=== PATIENT | male | born 1945 | race Caucasian/White ===

== ENCOUNTER 2016-12-20 15:27 | Inpatient (IN) | payer MEDICARE ==
[~2016-12-20] VITALS: Ht 182.9 cm; Wt 133.0 kg
[2016-12-20] VITALS (7 sets, daily range): BP systolic 116–163; BP diastolic 62–92; PULSE 61–75; RESP 10–20; O2SAT 96–99
[2016-12-20 15:47] LABS: BASOPHILS % (AUTO) 0.1 % (0-3); EOSINOPHILS % (AUTO) 1.5 % (0-5); Mean Corpuscular Hemoglobin 32.2 pg (27.0-35.0); Mean Corpuscular Volume 94.1 fL (81-100); NEUTROPHILS % (AUTO) 81.9 % (40-74); Platelet Count 190 bil/L (150-400)
--- NOTE | 2016-12-20 15:51 | DRSVH ---
PROCEDURE: X-RAY CHEST ONE VIEW, PORTABLE ([id number]) INDICATIONS: Chest pain. TECHNIQUE: One view of the chest was acquired. COMPARISON: Outside Facility, RG, CT THORAX/ABDOMEN/PELVIS WITH CONTRAST, 05/02/2008, 14:31. FINDINGS: Surgical changes and devices: Surgical changes in the area of thyroid gland. Lungs and pleura: No pleural effusions or pneumothorax. Lungs are clear. Mediastinum: Mediastinal contours appear normal. Heart size is normal. Bones and chest wall: No suspicious bony lesions. Overlying soft tissues appear unremarkable. IMPRESSION: No acute cardiopulmonary disease. Dictated by: Tabitha Roche M.D. on 12/20/2016 at 15:48 Approved by: Tabitha Roche M.D. on 12/20/2016 at 15:49
--- NOTE | 2016-12-20 16:00 | ED.REPORT ---
HPI-Chest Pain 40 and Over Date of Service Dec 20, 2016 ED Provider: Shady Love MD Patient is a 71 year old male with a history of gallbladder cancer status post cholecystectomy, hypertension and diabetes who presents to the ED via EMS complaining of chest pain onset this morning. Associated symptoms include shortness of breath, pain that radiates into his right arm and the right side of his neck. He denies diaphoresis or increased nausea. The patient states that the episode of chest pain resolved after 15 minutes. He reports that around 1400 the chest pain returned, was more severe and describes it as sharp. This episode last approximately 30-45 minutes. En route, the patient was given ASA. The patient has been pain free for about an hour. Patient is currently receiving chemotherapy treatment. He states that he had a normal stress echo 7 months ago. Nursing Notes Stated Complaint: CHEST PAIN Chief Complaint: Chest Pain Nursing Notes Reviewed: Yes Allergies: Coded Allergies: Penicillins (Verified Allergy, Severe, rash, 12/20/16) amoxicillin (Verified Allergy, Severe, rash, 12/20/16) Uncoded Allergies: bee stings (Allergy, Severe, anaphylatic , 12/20/16) hay fever (Allergy, Mild, 12/20/16) General Time Seen by MD: 15:59 Chief Complaint Chest pain Hx Obtained From: Patient Arrived By: Ambulance Sudden in Onset?: Yes Onset Occurred: 1 - 4 hours ago Symptom Duration: Intermittent Location: : Substernal Quality: Painful Severity: Current: Moderate Past Medical History Past Medical History gallbladder cancer thyroid cancer Reports: Diabetes mellitus Past Surgical History Reports: Cholecystectomy Smoking History Unknown if Ever Smoker Ambulatory Status Independent Review of Systems Respiratory: Reports: Shortness of breath Cardiovascular: Reports: Chest pain GI: Denies: Nausea Musculoskeletal: Reports: Extremity pain, Neck pain Skin: Denies Diaphoresis Complete sys rev & neg: except as marked. Physical Exam Initial Vital Signs Vital Signs (First) Date Time Temp Pulse Resp B/P Pulse Ox O2 Delivery O2 Flow Rate FiO2 12/20/16 15:30 36.4 68 20 125/64 96 Room Air Initial VS: Reviewed General/Constitutional: Awake, Alert Respiratory / Chest: Atraumatic, Breath sounds NL, Breath sounds = bilat, No respiratory distress Cardiovascular: Heart rate NL, Regular rhythm, Heart sounds NL Abdomen: Atraumatic, Soft, Non-tender Lower Extremity / Pelvis / MS: Atraumatic, Full range of motion Skin: Atraumatic, Color NL, No rash, Warm, Dry Neurologic: Oriented X3, Speech NL Psychiatric: Affect NL, Mood NL Head / Eyes: Atraumatic, Normocephalic Interpretation & Diagnostics Lab Results Interpretation Result Diagram: 12/20/16 1537 12/20/16 1537 Test 12/20/16 15:37 12/20/16 16:43 White Blood Count 6.8th/mm3 (3.8-10.1) Red Blood Count 4.26mil/mm3 (4.40-5.80) Hemoglobin 13.7g/dL (13.8-17.2) Hematocrit 40.1% (41.0-50.0) Mean Corpuscular Volume 94.1fL (81-100) Mean Corpuscular Hemoglobin 32.2pg (27.0-35.0) Mean Corpuscular Hemoglobin Concent 34.2% (32.0-37.0) Red Cell Distribution Width 12.5% (12.3-15.4) Platelet Count 190bil/L (150-400) Neutrophils (%) (Auto) 81.9% (40-74) Lymphocytes (%) (Auto) 15.4% (14-46) Monocytes (%) (Auto) 1.0% (4-12) Eosinophils (%) (Auto) 1.5% (0-5) Basophils (%) (Auto) 0.1% (0-3) D-Dimer 0.69mg/L FEU (<0.50) Sodium Level 136mEq/L (134-144) Potassium Level 4.0mEq/L (3.5-5.2) Chloride Level 100mEq/L (97-108) Carbon Dioxide Level 21mmol/L (18-29) Blood Urea Nitrogen 18mg/dL (8-27) Creatinine 0.82mg/dL (0.76-1.27) Estimat Glomerular Filtration Rate 98mL/min (>59) Glucose Level 184mg/dL (60-99) Calcium Level 8.7mg/dL (8.5-10.1) Magnesium Level 2.1mg/dL (1.6-2.6) Total Bilirubin 1.8mg/dL (0.0-1.2) Aspartate Amino Transf (AST/SGOT) 24U/L (0-50) Alanine Aminotransferase (ALT/SGPT) 28U/L (0-44) Alkaline Phosphatase 49U/L (25-160) Troponin T < 0.010ug/L (0.0-0.011) Total Protein 6.7g/dL (6.4-8.4) Albumin 3.4g/dL (3.4-5.0) Hold Urine Received (Received) ECG Interpretation ECG Interpretation: RBBB and LAFB Time: 15:37 Interpreted by: ED physician Normal ECG Interpretation: Normal rate (68), Normal sinus rhythm X-Ray Chest Interpretation Chest Xray Interpretation: IMPRESSION: No acute cardiopulmonary disease. Dictated by: Tabitha Roche M.D. on 12/20/2016 at 15:48 Approved by: Tabitha Roche M.D. on 12/20/2016 at 15:49 Interpretation / Wet Read by: Interpret - Radiologist Re-Eval/Medical Decision Med Decision/Clinical Course D-dimer is slightly elevated therefore chest CT will be performed. Time of Eval: 16:03 Re-Evaluation/Progress Note: Patient is currently pain free. Time of Eval: 16:50 Re-Evaluation/Progress Note: Discussed the conversation that was had with his rn advanced and primary care physician. Plan to admit. Patient understands and agrees to plan. All questions were addressed. Time of Eval: 17:23 Re-Evaluation/Progress Note: Discussed plan for CT to rule out PE. Consultation #1: Consulted With: Cardiology Call Returned at: 16:32 Note: Consult with the partner of Dr. Jairo Skelton, from [facility], who reports that the patient's stress echo was normal 7 months ago. Consultation #2: Consulted With: Property Maintenance Supervisor Call Returned at: 16:44 Manager Bridge: Agrees with eval, Agrees with plan Note: Consult with Dr. Kinga eRbolledo (oncology), who recommends excluding pulmonary embolism, and that he should not take his chemotherapy medications until discussed with rn advanced again. Consultation #3: Referral / Consult Name: MosquedaMarah DO Consulted With: Hospitalist Call Returned at: 17:16 Manager Bridge: Agrees with eval, Agrees with plan, Accepts admit Counseled Regarding: Diagnosis, Lab results, Need for admission Discharge & Departure Primary Impression: Chest pain Chest pain type: unspecified Qualified Code: R07.9 - Chest pain, unspecified Disposition: ADMITTED TO HOSPITAL Discharge Condition All VS Reviewed: Yes Condition: Stable Scribe Attestation Portions of this note were transcribed by Yasmin Saunders. I, Dr. Love personally performed the history, physical exam and medical decision-making; I reviewed and confirmed the accuracy of the information in the transcribed note. Signed by: Emanuel Mcallister, 12/20/16 Shady Love MD Dec 20, 2016 16:00 Mandi Saunders Dec 20, 2016 16:08
[2016-12-20 16:17] LABS: TROPONIN T < 0.010 ug/L (0.0-0.011)
[2016-12-20 16:26] LABS: Magnesium 2.1 mg/dL (1.6-2.6)
[2016-12-20] MEDS ORDERED: 0.9% Sodium Chloride 1,000 ML IV SCH (17:42)
[2016-12-20] MEDS ORDERED: Alum-Mag Hydrox-Simeth 30 mL Suspension PO PRN (17:45)
[2016-12-20] MEDS ORDERED: Atropine 1 mg/10 mL (Code) Syringe IVPUSH PRN ×2 (17:45→21:20)
[2016-12-20] MEDS ORDERED: Ondansetron 2 mg/mL 2 mL Inj IVPUSH PRN ×2 (17:45→21:20)
[2016-12-20] MEDS ORDERED: Polyethylene Glycol (PEG) 17 Gm Powder PO PRN (17:45)
[2016-12-20] MEDS ORDERED: Senna-Docusate 8.6-50 mg Tablet PO PRN (17:45)
[2016-12-20] MEDS ORDERED: Nitroglycerin 50 mg/250 mL D5W 50,000 MCG in IV Premix 1 EACH IV SCH (18:20)
[2016-12-20] MEDS ORDERED: Nitroglycerin 50 mg/250 mL D5W Premix IV ONE (18:25)
--- NOTE | 2016-12-20 18:26 | DRSVH ---
PROCEDURE: CT ANGIO CHEST PULMONARY EMBOLISM ([id number]) INDICATIONS: chest pain TECHNIQUE: After the administration of intravenous contrast, 2 mm thick sections acquired from the pulmonary api yamile to the posterior costophrenic angles. 3-dimensional maximum intensity projection (MIP) coronal a nd sagittal reformats were then acquired through the thorax. For radiation dose reduction, the follo wing was used: automated exposure control, adjustment of mA and/or kV according to patient size. COMPARISON: None. FINDINGS: Image quality: Excellent. Pulmonary arteries: Pulmonary arteries are normal in size, and demonstrate no intraluminal filling d efects to suggest central pulmonary embolism. Lungs and pleura: Lungs are clear. No pleural effusions or pneumothorax. Central and peripheral ai rways are patent. Mediastinum: Heart size is normal, without pericardial effusion. No mediastinal adenopathy. 10 mm l eft hilar lymph node is present. Thoracic aorta is normal in caliber and enhancement. Esophagus is normal in caliber, without hiatal hernia. Bones and chest wall: No suspicious bony lesions. Ribs and thoracic spine appear intact throughout. Thyroid gland is not visualized. No axillary or supraclavicular adenopathy. Abdomen: Visualized upper abdominal solid organs appear normal in the early arterial phase of enhanc ement. IMPRESSION: 1. Lungs are clear. No visualized pulmonary embolism. 2. 10 mm left hilar lymph node. This is overall nonspecific and no priors are available for compariso n. Dictated by: Aye Mcguire M.D. on 12/20/2016 at 18:20 Approved by: Aye Mcguire M.D. on 12/20/2016 at 18:24
[2016-12-20] MEDS ORDERED: Heparin 1,000 Unit/mL 10 mL Inj ONE (19:12)
[2016-12-20] MEDS ORDERED: Nitroglycerin 50,000 mcg/250 mL D5W Premix IV ONE (19:12)
[2016-12-20] MEDS ORDERED: Heparin 1,000 Units/500 mL NS Premix IV ONE (19:12)
[2016-12-20] MEDS ORDERED: Dextrose 5% 250 ML IV ONE (19:13)
[2016-12-20] MEDS ORDERED: NitroPRUSSIDE 25,000 mCg/mL 2 mL Inj IV ONE (19:13)
[2016-12-20] MEDS ORDERED: 0.9% Sodium Chloride 1,000 ML ONE (19:13)
[2016-12-20] MEDS ORDERED: Heparin 10,000 Unit/1,000 mL NS Premix IV ONE (19:13)
[2016-12-20] MEDS ORDERED: Heparin 5,000 Unit/mL Inj IVPUSH PRN (19:30)
[2016-12-20] MEDS ORDERED: Heparin 25K Unit/500mL 0.45 NS 25,000 UNIT in IV Premix 1 EACH IV SCH (19:30)
[2016-12-20 19:36] LABS: TROPONIN T < 0.010 ug/L (0.0-0.011)
[2016-12-20 19:45] LABS: Creatine Kinase 64 U/L (21-232)
[2016-12-20] MEDS ORDERED: fentaNYL-PF 50 mCg/mL 2 mL Inj ONE (19:51)
[2016-12-20] MEDS ORDERED: Atropine 1 mg/10 mL (Code) Syringe ONE (19:56)
[2016-12-20] MEDS ORDERED: FLUO20CA25 PO (21:04)
[2016-12-20] MEDS ORDERED: FINA5TAB9 PO (21:04)
[2016-12-20] MEDS ORDERED: TRAZ-115 PO (21:04)
[2016-12-20] MEDS ORDERED: SIMV20TA4 PO (21:04)
[2016-12-20] MEDS ORDERED: ASPI-973 PO (21:04)
[2016-12-20] MEDS ORDERED: AMLO5TAB2 PO (21:04)
[2016-12-20] MEDS ORDERED: CHOL5000 PO (21:04)
[2016-12-20] MEDS ORDERED: FEXO-15 PO (21:04)
[2016-12-20] MEDS ORDERED: LEVO150T5 PO (21:04)
[2016-12-20] MEDS ORDERED: HYDR-4003 PO (21:04)
[2016-12-20] MEDS ORDERED: OLOP5DRO8 (21:04)
[2016-12-20] MEDS ORDERED: SENN-133 PO (21:04)
[2016-12-20] MEDS ORDERED: BRIM5DRO (21:04)
[2016-12-20] MEDS ORDERED: METF500T7 PO (21:04)
[2016-12-20] MEDS ORDERED: LOPE2CAP PO (21:04)
[2016-12-20] MEDS ORDERED: ZOLP5TAB6 PO (21:04)
[2016-12-20] MEDS ORDERED: POLY17PO23 PO (21:04)
[2016-12-20] MEDS ORDERED: LATA2.5D6 (21:04)
[2016-12-20] MEDS ORDERED: ONDA8TAB10 PO (21:04)
--- NOTE | 2016-12-20 21:15 | CS94 ---
[address] [address] DIAGNOSTIC CARDIAC CATHETERIZATION PATIENT: LILLIANA DYKES : 1945 MR#: [id number] ADMIT: 12/20/2016 JOB ID: [id number] SERVICE DATE: 12/20/2016 PROCEDURE: Selective right and left coronary angiography, left heart catheterization. INDICATIONS: Acute coronary syndrome. PROCEDURAL DETAILS: The reader and the coders are referred to the procedure log for complete details. Briefly, it was done via right femoral approach using a 6-Nauruan system. ANGIOGRAPHIC FINDINGS: 1. Left main: No significant disease. 2. LAD is a moderate caliber transapical vessel. It has mild plaquing of about 10% to 20% in its mid segment. No critical stenosis is noted. 3. Circumflex is a large caliber, codominant vessel. It is free of any significant disease. 4. Right coronary artery is codominant. It is moderate caliber. No significant disease is noted in the right coronary either. 5. Left heart catheterization revealed an LVEDP of 10. There was no gradient upon pullback. LVEF is preserved and is estimated to be greater than 60%. In summary, no significant epicardial coronary artery disease. Continue with risk factor modification. Unknown cardiac etiology for his chest discomfort. Needs to be determined.
[2016-12-20] MEDS ORDERED: HYDROcodone-APAP 5-325 mg Tablet PO PRN ×2 (21:20→22:25)
[2016-12-20] MEDS ORDERED: 0.9% Sodium Chloride 400 ML (4 HRS) IV ONE (21:20)
[2016-12-20] MEDS ORDERED: 0.9% Sodium Chloride 250 ML BOLUS IV PRN (21:20)
[2016-12-20] MEDS ORDERED: Sodium Chloride LOK Flush 10 mL Syringe IVFLUSH PRN (21:20)
--- NOTE | 2016-12-20 21:21 | HP ---
[address] [address] HISTORY AND PHYSICAL PATIENT: LILLIANA DYKES : 1945 MR#: [id number] ADMIT: 12/20/2016 JOB ID: [id number] CHIEF COMPLAINT: Chest discomfort. This patient came to the emergency department with complaints of chest discomfort. He had a CT scan done to rule out a dissection or a PE. I was informed by the ER physician both of these were negative. However, while in the ER, the patient started having severe chest discomfort. He became diaphoretic with it. Along with this, there were subtle ST-T changes with slight ST-segment elevation and T-wave changes in the anterolateral leads. I was contacted and the decision was made to take the patient to the bobcat driver/labor urgently. At the time of interview, the patient had got a nitroglycerin and was pain free. PAST MEDICAL HISTORY: Recently diagnosed gallbladder cancer. The patient is considered to be potentially curable from his gallbladder cancer and his prognosis is deemed to be excellent. Three years ago he was diagnosed with diabetes for which he takes metformin. He also has history of hypertension and dyslipidemia. MEDICATIONS AT HOME: Metformin, aspirin, atenolol and a cholesterol-lowering pill. ALLERGIES: PENICILLIN. PERSONAL HISTORY: He denies any smoking or alcohol abuse. FAMILY HISTORY: Negative for premature coronary artery disease. REVIEW OF SYSTEMS: Comprehensive review of systems was done and is as per HPI. More importantly, no GI, bleeding. He is unsure if he is going to require any upcoming surgeries. EXAMINATION: Obese gentleman. Looks his age, no distress when examined in the bobcat driver/labor. Neck supple. No JVD. Chest: Clear. Heart sounds S1, S2. Somewhat distant but no gallops. Abdomen soft. Extremities: Negative for CCE. Good femoral pulses bilaterally. ZINC MINER BLASTING alert and oriented. The patient has chest discomfort that seemed anginal. This along with his diaphoresis and ST-T changes compelled us to take him to the bobcat driver/labor. The patient gave his consent. Angiographic results are reported elsewhere. Briefly, he has normal coronaries with preserved LV function. The patient will be admitted to the hospitalist service. His somewhat distant heart sounds could be because of his obesity. However, I would recommend getting an echo as well. Further management per medical team. Cardiology will follow. Dr. Cotto resumes service in the morning. Dr. Griffiths is on-call tonight.
[2016-12-20] MEDS: Sodium Chloride LOK Flush 10 mL Syringe IVFLUSH SCH (21:40)
[2016-12-20 21:52] LABS: APPEARANCE,URINE CLEAR (CLEAR,HAZY); COLOR,URINE YELLOW (YELLOW); OCCULT BLOOD,URINE TRACE (NEGATIVE); UROBILINOGEN,URINE NORMAL (NORMAL)
--- NOTE | 2016-12-20 22:26 | PCM.HPMED ---
Subjective Date of Service Dec 20, 2016 Primary Provider: Admitting Physician: Kenan Tamayo MD Primary Care Physician: Jeff Talley MD Attending Physician: Kenan Tamayo MD Admit Status: From the Emergency Department, Full Admit Chief Complaint: Chest pain. . History of Present Illness: Glen Armenta is a 71-year-old male with a past medical history significant for hypertension, hyperlipidemia, obesity, diabetes mellitus type II, non-insulin using, and gallbladder cancer status post cholecystectomy on Xeloda who presented to [facility] emergency department via EMS complaining of chest pain. The patient reports that he had an episode of right-sided chest pain that radiated to his right arms the last few days and again at 10:00 this morning. He describes the pain as sharp in quality. The episode this morning lasted 15-30 minutes and spontaneously resolved on its own. He then had an episode again at 1400 that was increased in severity and also radiated to his right jaw. He denies associated shortness of breath, nausea, vomiting, diaphoresis, lightheadedness or dizziness. This episode lasted 30-45 minutes and resolved prior to EMS arrival. En route, the patient was given 325 mg of aspirin. The patient has been pain free for about an hour. The patient is currently receiving chemotherapy treatment. He states that he had a normal stress echo approximately 7 months ago. Interval history: The patient had an elevated d-dimer and a cancer patient undergoing chemotherapy, therefore, a CTA was ordered to rule out PE. While the patient was in this CT scanner he began experiencing chest pain and reported it to one of the nurses. An EKG was done which showed STEMI and he was taken to the slab lifting supervisor by Dr. Hayden. Left heart catheterization revealed no obstructive coronary artery disease. Please see report. A cardiac heparin gtt was initiated and then discontinued. Vital signs in the ER: Temperature 36.4. Pulse 68. Respiratory rate 20. Blood pressure 125/64. Pulse ox 96% on room air. He received nitroglycerin gtt and cardiac gtt. PCP is Dr. Jeff Talley. . Review of Systems: A comprehensive review of systems was conducted with the patient and found to be negative except as above in the History of Present Illness. . Allergies Coded Allergies: Penicillins (Verified Allergy, Severe, rash, 12/20/16) amoxicillin (Verified Allergy, Severe, rash, 12/20/16) influenza virus vaccine, specific (Verified Allergy, Severe, 12/20/16) Uncoded Allergies: bee stings (Allergy, Severe, anaphylatic , 12/20/16) hay fever (Allergy, Mild, 12/20/16) Home Medications Amlodipine 5 mg twice a day. Aspirin 81 mg daily. Combigan eyedrops Fexofenadine 180 mg twice a day. Finasteride 5 mg daily. Fluoxetine 20 mg daily at bedtime. Hydrocodone 5-325 mg 1 tab 4 times a day as needed for pain. Latanoprost 2.5 mL drops Levothyroxine 175 g daily. Loperamide 2 mg as needed for diarrhea. Metformin 500 mg twice a day. Olopatadine HCL 0.1% drops. Ondansetron 8 mg 4 times a day as needed for nausea. MiraLAX 1 packet daily as needed for constipation. Senna 8.6 mg daily as needed for constipation. Simvastatin 20 mg daily. Trazodone 50 mg daily at bedtime. Zolpidem 5 mg daily at bedtime as needed for insomnia. Vitamin D3 5000 international units daily. Xeloda . PMH 1. Gallbladder cancer status post cholecystectomy. 2. Thyroid cancer status post thyroidectomy. 3. Diabetes mellitus type II, non-insulin using. 4. 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 5. Hypertension. 6. Hyperlipidemia. 7. Seasonal allergies. 8. Depression. 9. Insomnia. 10. BPH. 11. Vitamin D deficiency. . Surgical History 1. Cholecystectomy. 2. Thyroidectomy. 3. Bilateral knee arthroscopic. 4. Bilateral cataract extraction. 5. Neck fusion unknown level. 6. Detached retina status post repair. . Family History Mother who is alive with unknown history and is 96 years old. Father of prostate cancer and colon cancer at 87 years old. He has three half-brothers who all have prostate cancer. One half-sister who is alive and healthy. . Social History Hx Alcohol Use: Yes (rarely 1-2x/year) Hx Substance Use: No Smoking Status: Former Smoker (1 PPD 20 years), Unknown if Ever Smoker Additional Information The patient has been for 45 years. He has 2 children who are healthy. He is retired manager administrative. . Exam Vital Signs Vital Sign - Last Date Time Temp Pulse Resp B/P Pulse Ox O2 Delivery O2 Flow Rate FiO2 12/20/16 20:43 36.6 61 10 116/72 97 Room Air Exam General: Older male lying flat in bed and in no acute distress, well-developed, well-nourished, appropriately interactive. HEENT: Normocephalic, atraumatic. External ears without defect. Pupils equal, round, and reactive to light. Anicteric sclerae, moist conjunctivae, and no lid lag. Oropharynx free of erythema and cobble stoning with moist mucosa. Neck: Supple with full range of motion. No jugular venous distension. No bruits. No lymphadenopathy or thyromegaly. Cardiovascular: Regular rate and rhythm without murmurs, rubs, or gallops appreciated Pulmonary: Clear to auscultation bilaterally without crackles, wheezes, or rhonchi. Normal respiratory effort with no use of accessory muscles. Abdomen: Soft, nontender, nondistended, bowel sounds present. No hepatosplenomegaly or masses appreciated. Extremities: No clubbing, cyanosis, or edema. Groin with closure device in place clear and dry. Skin: Normal temperature, turgor, and texture; no rash, ulcers, or subcutaneous nodules appreciated. Neurological: Cranial nerves grossly intact. Normal muscle strength, tone, and bulk. Reflexes, coordination, and sensory function within normal limits. No known gait impairment. Psychiatric: Normal mood and affect. Alert and oriented to person, place, and time. . Lab and Diagnostics Labs Item Value Date Time Calcium Level 8.7 mg/dL 12/20/16 153 Magnesium Level 2.1 mg/dL 12/20/16 1537 Total Bilirubin 1.8 mg/dL H 12/20/16 1537 Aspartate Amino Transf (AST/SGOT) 24 U/L 12/20/16 1537 Alanine Aminotransferase (ALT/SGPT) 28 U/L 12/20/16 1537 Alkaline Phosphatase 49 U/L 12/20/16 1537 Total Creatine Kinase 64 U/L 12/20/16 185 Creatine Kinase MB 1.8 ng/mL 12/20/16 185 Troponin T < 0.010 ug/L 12/20/16 185 Troponin T < 0.010 ug/L 12/20/16 1537 Total Protein 6.7 g/dL 12/20/16 1537 Albumin 3.4 g/dL 12/20/16 153 Thyroid Stimulating Hormone (TSH) 1.050 uIU/mL 12/20/16 1537 Result Diagram: 12/20/16 1537 12/20/16 1537 X-Rays, CTs and MRIs X-RAY CHEST ONE VIEW, PORTABLE IMPRESSION: No acute cardiopulmonary disease. Dictated by: Tabitha Roche M.D. on 12/20/2016 at 15:48 CT ANGIO CHEST PULMONARY EMBOLISM IMPRESSION: 1. Lungs are clear. No visualized pulmonary embolism. 2. 10 mm left hilar lymph node. This is overall nonspecific and no priors are available for comparison. Dictated by: Aye Mcguire M.D. on 12/20/2016 at 18:20 . 12-lead ECG EKG:Sinus rhythm, heart rate 68, left axis, borderline prolonged QTC otherwise normal intervals, poor R-wave progression, RBBB, left and anterior fascicular block, no pathological Q waves or acute ischemic changes such as ST elevation or depression. . Assessment & Plan Glen Armenta is a 71-year-old male with a past medical history significant for hypertension, hyperlipidemia, obesity, diabetes mellitus type II, non-insulin using, and gallbladder cancer status post cholecystectomy on Xeloda who presented to [facility] emergency department via EMS complaining of chest pain. 1. Acute chest pain, present on admission. Resolved. - The patient presented with several episodes of right-sided substernal chest pain at rest gradually worsening in severity with each episode with radiation to right arm and neck. Without associated nausea, vomiting, diaphoresis, shortness of breath, lightheadedness or dizziness. - Differential diagnosis includes: Xeloda -induced coronary vasospasm versus less likely musculoskeletal pain versus esophageal spasm. PE ruled out. - Cardiac risk factors include: Hypertension, hyperlipidemia, diabetes mellitus type II, obesity, and former smoker. - Initial EKG negative for acute ischemic changes. Repeat EKG demonstrated STEMI. - Initial troponin < 0.010 2. - Started cardiac heparin gtt for what was thought to be probable STEMI. Discontinued after catheterization. - Chest x-ray did not demonstrate any acute cardiopulmonary process, as above. - Continue aspirin 81 mg daily and simvastatin 20 mg daily at bedtime. - Fasting lipid panel ordered for tomorrow morning. - Ordered an echocardiogram, pending. - Consulted cardiology, Dr. Hadyen, who performed a cardiac catheterization which did not demonstrate any obstructive coronary artery disease. Please see cath report. We appreciate cardiology's time and recommendations. Chronic problems: 2. Gallbladder cancer status post cholecystectomy, not present on admission. Stable. - Discontinued Xeloda at his oncologist, Dr. Liv Rebolledo, direction due to a rare side effect of this medication causing coronary vasospasm. - His oncologist recommended discussing this with Dr. Reeves the patients tobacco packing machine operator. 3. Diabetes mellitus type II, non-insulin using, present on admission. Stable. - The patient reports his last hemoglobin A1c was 7.0%. Repeat hemoglobin A1c pending. - Order carbohydrate/heart healthy diet. - Ordered low-dose correctional scale insulin. - Held metformin. May restart at time of discharge. 4. Surgically induced hypothyroidism, present on admission. Stable. - Continue levothyroxine 175 g daily. 5. Hypertension, present on admission. Stable. - Continue amlodipine 5 mg twice a day. 6. Hyperlipidemia, present on admission. Stable. - Continue simvastatin 20 mg daily. 7. Seasonal allergies, present on admission. Stable. - Continue fexofenadine 180 mg twice a day. 8. Depression, present on admission. Stable. - Continue fluoxetine 20 mg daily at bedtime. 9. BPH, present on admission. Stable. - Continue finasteride 5 mg daily. 10. Insomnia, present on admission. Stable. - Continue trazodone 50 mg daily at bedtime and zolpidem 5 mg daily at bedtime as needed for insomnia. 11. Vitamin D deficiency, present on admission. Stable. - Continue vitamin D3 5000 international units daily. PRN antiemetics: Zofran and Maalox. PRN bowel regimen: Senna and MiraLAX. PRN analgesics: Tylenol. Patient is admitted under inpatient status with expected length of stay greater than 2 midnights due to severity of presenting symptoms, risk of adverse event, and complexity of treatment plan. . VTE Prophylaxis: Sub-Q Heparin (Unfractionated) Resuscitation Status: CPR: Attempt Resuscitation Attending Statement The patient was seen and examined together with Dr. Savage on 12/20 and I agree with the history, exam and plan as outlined in the note above. Karen Savage DO Dec 20, 2016 20:51 Kenan Tamayo MD Dec 20, 2016 22:26
--- NOTE | 2016-12-20 22:36 | NUR ---
Admission Pt admitted to CCU room #2020 at 2030 on 12/20. Pt A&O, stable on RA. Pt received a star close to the right groin. Site soft, nontender, no hematoma. Vitals WNL. Blood Glucose Stable. Pt to be off strict bedrest at 2230. Pt compliant with plan of care. Pt in no acute distress.
[2016-12-21] MEDS ORDERED: Heparin 5,000 Unit/mL Inj SUBQ SCH (00:30)
--- NOTE | 2016-12-21 01:29 | NUR ---
Assumed Care Assumed care of patient at 2355. Patient resting comfortably in bed, VSS, right groin site soft, non-tender, no drainage present on dressing. Patient up to commode with standby assist; small firm BM.
[2016-12-21 03:44] LABS: BASOPHILS % (AUTO) 0.3 % (0-3); Mean Corpuscular Volume 94.1 fL (81-100); Platelet Count 177 bil/L (150-400)
[2016-12-21 04:01] VITALS: BP 128/94; PULSE 61; RESP 17; O2SAT 96
[2016-12-21 04:23] LABS: Creatine Kinase 53 U/L (21-232); Magnesium 2.5 mg/dL (1.6-2.6)
[2016-12-21 05:40] VITALS: PULSE 65
[2016-12-21 07:41] VITALS: BP 133/68; PULSE 59; RESP 17; O2SAT 95
[2016-12-21] MEDS: Sodium Chloride LOK Flush 10 mL Syringe IVFLUSH SCH (08:37)
[2016-12-21 08:42] VITALS: PULSE 68
[2016-12-21 12:28] VITALS: BP 154/83; PULSE 64; RESP 17; O2SAT 96
[2016-12-21] MEDS ORDERED: NITR0.4T SL ×2 (13:42→14:31)
--- NOTE | 2016-12-21 13:46 | DRSVH ---
[facility] [address] [place] [address] Echocardiogram Report Name: LILLIANA DYKES LStudy Juvenal te: 12/21/2016 Height: 28.5 in Hospital Exam Location: [facility] Weight: 293 lb Gender: Other BSA: 1.3 m2 : 1945 Age: 71 yrs BP: 128/94 mmHg Reason For Study: CHEST PAIN Ordering Physician: Performed By: Gualberto Flores Referring Physician: Kenneth GONZALEZ Interpretation Summary There is mild concentric left ventricular hypertrophy. The ejection fraction is estimated to be 60-65%. There are no focal wall motion abnormalities. The right ventricle is borderline dilated. The apical portion of the RV appears hypokinetic. The clinical significance of this finding is uncertain. The IVC is of normal diameter and collapses greater than 50% with a sniff. This suggests a low right atrial pressure of 3 mm Hg. There is no pericardial effusion. No other echocardiographic abnormalities seen. No obvious etiology for the patients chest discomfort. Suggest f/u echo in 6 months to re-evaluate the distal RV. Procedure: A two-dimensional transthoracic echocardiogram with color flow and Doppler was performed. The study quality was technically adequate. There is no prior echocardiogram noted for this patient. The patient was in normal sinus rhythm during the exam. Left Ventricle: The left ventricle is normal in size. There is mild concentric left ventricular hypertrophy. The ejection fraction is estimated to be 60-65%. There are no focal wall motion abnormalities. Right Ventricle: The right ventricle is borderline dilated. The apical portion of the RV appears hypokinetic. The clinical significance of this finding is uncertain. Atria: The left atrium is borderline dilated. The right atrium is borderline dilated. The interatrial septum is intact with no evidence for an atrial septal defect. Mitral Valve: The mitral valve is normal in structure and function. There is no mitral regurgitation noted. Aortic Valve: The aortic valve is trileaflet. The aortic valve opens well. There is no aortic valve stenosis. No aortic regurgitation is present. Tricuspid Valve: The tricuspid valve is normal in structure and function. There is a trace or physiologic amount of tricuspid regurgitation. Pulmonary artery pressures cannot be estimated because of the lack of a measurable TR jet velocity. Pulmonic Valve: The pulmonic valve is normal in structure and function. There is trace pulmonic regurgitation. Great Vessels: The aortic root is normal size. The ascending aorta is at the upper limits of normal in size. The pulmonary artery is normal size. The IVC is of normal diameter and collapses greater than 50% with a sniff. This suggests a low right atrial pressure of 3 mm Hg. Pericardium/ Pleura There is no pericardial effusion. There is no pleural effusion. MMode/2D Measurements & Calculations LVIDd: 4.9 cm LVIDs: 2.8 cm LA A2 area: 23.7 cm FS: 43.4 % LA A4 area: 26.8 cm IVSd: 1.3 cm LA length (vol): 7.0 cm LVPWd: 1.3 cm LA vol: 76.6 ml LA vol index: 60.1 ml/m IVC diam: 2.0 cm RA long axis: 6.3 cm Aortic Jxn: 2.7 cm RA area: 18.7 cm asc Aorta Diam: 3.5 cm RA vol: 47.2 ml RA : 37.1 ml/m2 LV rizvi. diameter/BSA (cm/m^2): 3.8 LV sys. diameter/BSA (cm/m^2): 2.2 RVD1 (basal): 4.0 cm RVD2 (mid): 4.5 cm Doppler Measurements & Calculations MV E max solitario: 73.4 cm/sec MV E/A: 0.62 MV A max solitario: 119.4 cm/sec Med Peak E' Solitario: 4.0 cm/sec E/E' med: 18.4 Lat Peak E' Solitario: 3.2 cm/sec E/E' lat: 22.8 E/e' average: 20.6 Pulm A Revs Solitario: 31.4 cm/sec PA Accel Time: 0.15 sec MV dec time: 0.26 sec MV P1/2t max solitario: 73.4 cm/sec Reading Physician:01:45 PM
--- NOTE | 2016-12-21 13:47 | PCM.DIMED ---
Discharge Instructions Date of Service Dec 21, 2016 Dates of Hospitalization Dec 20, 2016 at 19:16 Discharge Diagnosis Discharge Diagnosis # Acute chest pain, present on admission. Resolved. - Unclear etiology but ruled out for acute pulmonary embolism, myocardial infarction or acute coronary artery disease # History of gallbladder cancer status post cholecystectomy. # Histor of Thyroid cancer status post thyroidectomy. # Diabetes mellitus type II, non-insulin using. 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 # Hypertension. # Hyperlipidemia. Diet Discharge Diet: Low fat, Low Sodium, Heart Healthy Activity Discharge Activity: No restrictions Call your provider Call your provider for: Fever or Chills, Shortness of breath, Bleeding, Chest pain Patient Instructions Patient Instructions Seek immediate medical attention if any new or worsening signs or symptoms occur. Follow-up plan 1. Followup with your primary care provider, oncologist, and chief warden within coming week to further address your medications and treatment. Follow-up Provider: Jeff Talley MD, [place] Dec 21, 2016 13:47
--- NOTE | 2016-12-21 13:55 | PCM.DC.MED ---
Discharge Summary Date of Service Dec 21, 2016 Dates of Hospitalization Date of Hospital Admission Dec 20, 2016 at 19:16 Date of Discharge: Dec 21, 2016 Providers: Admitting Physician: Kenan Tamayo MD Primary Care Physician: Jeff Talley MD Attending Physician: Nabeel Alaniz Diagnosis at Time of Discharge Diagnosis at Time of Discharge # Acute chest pain, present on admission. Resolved. - Unclear etiology but ruled out for acute pulmonary embolism, myocardial infarction or acute coronary artery disease # History of gallbladder cancer status post cholecystectomy. # Histor of Thyroid cancer status post thyroidectomy. # Diabetes mellitus type II, non-insulin using. 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 # Hypertension. # Hyperlipidemia. Consultations 1. Cardiology Procedures XRay, CTs & MRIs X-RAY CHEST ONE VIEW, PORTABLE IMPRESSION: No acute cardiopulmonary disease. Dictated by: Tabitha Roche M.D. on 12/20/2016 at 15:48 CT ANGIO CHEST PULMONARY EMBOLISM IMPRESSION: 1. Lungs are clear. No visualized pulmonary embolism. 2. 10 mm left hilar lymph node. This is overall nonspecific and no priors are available for comparison. Dictated by: Aye Mcguire M.D. on 12/20/2016 at 18:20 . Invasive Procedures SERVICE DATE: 12/20/2016 PROCEDURE: Selective right and left coronary angiography, left heart catheterization. ANGIOGRAPHIC FINDINGS: 1. Left main: No significant disease. 2. LAD is a moderate caliber transapical vessel. It has mild plaquing of about 10% to 20% in its mid segment. No critical stenosis is noted. 3. Circumflex is a large caliber, codominant vessel. It is free of any significant disease. 4. Right coronary artery is codominant. It is moderate caliber. No significant disease is noted in the right coronary either. 5. Left heart catheterization revealed an LVEDP of 10. There was no gradient upon pullback. LVEF is preserved and is estimated to be greater than 60%. In summary, no significant epicardial coronary artery disease. Continue with risk factor modification. Unknown cardiac etiology for his chest discomfort. Needs to be determined. Galdino Hayden MD 12/20/162001 Brief History As noted in H&P by Dr. Tamayo: Glen Armenta is a 71-year-old male with a past medical history significant for hypertension, hyperlipidemia, obesity, diabetes mellitus type II, non-insulin using, and gallbladder cancer status post cholecystectomy on Xeloda who presented to [facility] emergency department via EMS complaining of chest pain. The patient reports that he had an episode of right-sided chest pain that radiated to his right arms the last few days and again at 10:00 this morning. He describes the pain as sharp in quality. The episode this morning lasted 15-30 minutes and spontaneously resolved on its own. He then had an episode again at 1400 that was increased in severity and also radiated to his right jaw. He denies associated shortness of breath, nausea, vomiting, diaphoresis, lightheadedness or dizziness. This episode lasted 30-45 minutes and resolved prior to EMS arrival. En route, the patient was given 325 mg of aspirin. The patient has been pain free for about an hour. The patient is currently receiving chemotherapy treatment. He states that he had a normal stress echo approximately 7 months ago. Interval history: The patient had an elevated d-dimer and a cancer patient undergoing chemotherapy, therefore, a CTA was ordered to rule out PE. While the patient was in this CT scanner he began experiencing chest pain and reported it to one of the nurses. An EKG was done which showed STEMI and he was taken to the laboratory scientist by Dr. Hayden. Left heart catheterization revealed no obstructive coronary artery disease. Please see report. A cardiac heparin gtt was initiated and then discontinued. Vital signs in the ER: Temperature 36.4. Pulse 68. Respiratory rate 20. Blood pressure 125/64. Pulse ox 96% on room air. He received nitroglycerin gtt and cardiac gtt. . Hospital Course 1. Acute chest pain, present on admission. Resolved. - The patient presented with several episodes of right-sided substernal chest pain at rest gradually worsening in severity with each episode with radiation to right arm and neck. - PE ruled out with negative CTA - Acute AK ruled out with negative Trop x 3 - Consulted cardiology, Dr. Hayden, who performed a cardiac catheterization on admission which did not demonstrate any significant obstructive coronary artery disease (as detailed above) - Patient reports having had significant relief for his chest pain after receiving SL NTG on admission and per his request will be discharged home with a prescription of SL NTG prn until he has a chance to followup with his Fire Safety Manager and oncologist later this week. - Echocardiogram was performed but official read is still pending by time of discharge. Per discussion with cardiology business operations manager will d/c patient home and recommend that he followup with the official results as outpatient either with his PCP or hide puller. Chronic problems: 2. Gallbladder cancer status post cholecystectomy, not present on admission. Stable. - Discontinued Xeloda at his oncologist, Dr. Liv Rebolledo, direction due to a rare side effect of this medication causing coronary vasospasm. - His oncologist recommended discussing this with Dr. Reeves the patients hide puller. 3. Diabetes mellitus type II, non-insulin using, present on admission. Stable. - HgA1C 6.5 - Held metformin. May restart at time of discharge. 4. Surgically induced hypothyroidism, present on admission. Stable. - Continued levothyroxine 175 g daily. 5. Hypertension, present on admission. Stable. - Continued amlodipine 5 mg twice a day. 6. Hyperlipidemia, present on admission. Stable. - Continued simvastatin 20 mg daily. 7. Seasonal allergies, present on admission. Stable. - Continued fexofenadine 180 mg twice a day. 8. Depression, present on admission. Stable. - Continued fluoxetine 20 mg daily at bedtime. 9. BPH, present on admission. Stable. - Continued finasteride 5 mg daily. 10. Insomnia, present on admission. Stable. - Continued trazodone 50 mg daily at bedtime and zolpidem 5 mg daily at bedtime as needed for insomnia. 11. Vitamin D deficiency, present on admission. Stable. - Continued vitamin D3 5000 international units daily. By day of discharge he denies any further chest pain, discomfort or other new symptoms. Exam Vital Signs (Last) Date Time Temp Pulse Resp B/P Pulse Ox O2 Delivery O2 Flow Rate FiO2 12/21/16 12:28 36.8 64 17 154/83 96 Room Air 12/21/16 05:45 21 Exam Lungs: CTA bilat CV: RRR Abd: Soft, NT, ND, +BS Test 12/20/16 15:37 12/20/16 16:43 12/20/16 21:31 12/20/16 21:52 D-Dimer 0.69mg/L FEU (<0.50) Hemoglobin A1c 6.5% (4.8-5.6) Total Bilirubin 1.8mg/dL (0.0-1.2) Aspartate Amino Transf (AST/SGOT) 24U/L (0-50) Alanine Aminotransferase (ALT/SGPT) 28U/L (0-44) Alkaline Phosphatase 49U/L (25-160) Total Protein 6.7g/dL (6.4-8.4) Albumin 3.4g/dL (3.4-5.0) Thyroid Stimulating Hormone (TSH) 1.050uIU/mL (0.450-4.500) Hold Urine Received (Received) Urine Color Yellow (YELLOW) Urine Appearance Clear (CLEAR,HAZY) Urine pH 6.0 (5.0-8.0) Urine Specific Lincoln <1.005 (1.003-1.035) Urine Protein Negativemg/dL (NEG,TRACE) Urine Glucose (UA) Negativemg/dL (NEGATIVE) Urine Ketones Negativemg/dL (NEGATIVE) Urine Occult Blood Trace (NEGATIVE) Urine Nitrite Negative (NEGATIVE) Urine Bilirubin Negative (NEGATIVE) Urine Urobilinogen Normalmg/dL (NORMAL) Urine Leukocyte Esterase Negative (NEGATIVE) Urine RBC 0-2/hpf (0-2) Urine WBC 0-5/hpf (0-5) Urine Epithelial Cells Few/hpf (NONE-MOD) Urine Crystals None seen (NONE SEEN) Urine Bacteria Few/hpf (NONE-FEW) Urine Hyaline Casts None/lpf (NONE) Urine Granular Casts None seen (NONE SEEN) Urine Waxy Casts None seen (NONE SEEN) Urine Red Blood Cell Casts None seen (NONE SEEN) Urine White Blood Cell Casts None seen (NONE SEEN) Urine Mucus None seen (None Seen) Urine Trichomonas None seen (NONE SEEN) Urine Yeast None (NONE SEEN) Urinalysis Comment None Urine Culture Reflexed Not indicated HIV (1&2) Antibody Rapid Negative (Negative) Test 12/21/16 03:20 12/21/16 09:23 White Blood Count 6.9th/mm3 (3.8-10.1) Red Blood Count 4.10mil/mm3 (4.40-5.80) Mean Corpuscular Volume 94.1fL (81-100) Mean Corpuscular Hemoglobin 32.0pg (27.0-35.0) Mean Corpuscular Hemoglobin Concent 33.9% (32.0-37.0) Red Cell Distribution Width 12.5% (12.3-15.4) Platelet Count 177bil/L (150-400) Neutrophils (%) (Auto) 74.0% (40-74) Lymphocytes (%) (Auto) 22.6% (14-46) Monocytes (%) (Auto) 1.0% (4-12) Eosinophils (%) (Auto) 2.0% (0-5) Basophils (%) (Auto) 0.3% (0-3) Sodium Level 138mEq/L (134-144) Potassium Level 4.2mEq/L (3.5-5.2) Chloride Level 104mEq/L (97-108) Carbon Dioxide Level 24mmol/L (18-29) Blood Urea Nitrogen 17mg/dL (8-27) Creatinine 0.77mg/dL (0.76-1.27) Estimat Glomerular Filtration Rate 106mL/min (>59) Glucose Level 160mg/dL (60-99) Calcium Level 8.3mg/dL (8.5-10.1) Magnesium Level 2.5mg/dL (1.6-2.6) Total Creatine Kinase 53U/L (21-232) Creatine Kinase MB 1.5ng/mL (0.0-10.4) Creatine Kinase MB % % (0.0-5.0) Troponin T 0.010ug/L (0.0-0.011) Triglycerides Level 92mg/dL (0-149) Cholesterol Level 117mg/dL (100-199) LDL Cholesterol, Calculated 59.600mg/dL (0-99) VLDL Cholesterol 18.400mg/dL HDL Cholesterol 39mg/dL (>39) Cholesterol/HDL Ratio 3.00 (0.0-4.4) Hemoglobin 13.6g/dL (13.8-17.2) Hematocrit 40.5% (41.0-50.0) Discharge Medications Discharge Medications Amlodipine (Amlodipine) 5 Mg Tablet 5 MG PO BID (Reported) Aspirin (Aspirin) 81 Mg Tablet 81 MG PO DAILY (Reported) Fexofenadine (Shelby Allergy) 60 Mg Tablet 180 MG PO BID (Reported) Levothyroxine (Levothyroxine) 150 Mcg Tablet 175 MCG PO QAM (Reported) Metformin ER (Metformin ER) 500 Mg Tablet 500 MG PO BID (Reported) Simvastatin (Simvastatin) 20 Mg Tablet 20 MG PO QAM (Reported) Trazodone (Trazodone) 50 Mg Tablet 50 MG PO HS (Reported) As needed Fluoxetine (Fluoxetine) 20 Mg Capsule 20 MG PO HS PRN PRN For Anxiety or Agitation (Reported) Hydrocodone-Acetaminophen 5-325 mg (Hydrocodone-Acetaminophen 5-325 mg) 1 Each Tablet 1 TAB PO QID PRN PRN For Pain (Reported) Loperamide (Loperamide) 2 Mg Capsule 2 MG PO PRN For Nausea (Reported) Nitroglycerin SL (Nitrostat) 0.4 Mg Tab.subl 0.4 MG SL Q5MIN PRN PRN chest pain Prescribed by: NABEEL ALANIZ MD Ondansetron ODT (Ondansetron ODT) 8 Mg Tab.rapdis 8 MG PO QID PRN PRN roseline ( Reported) Polyethylene Glycol 3350 (Gavilax) 17 Gm Powd.pack 1 PACK PO PRN For Constipation (Reported) Sennosides (Senna) 8.6 Mg Tablet 8.6 MG PO PRN For Constipation (Reported) Zolpidem (Zolpidem) 5 Mg Tablet 5 MG PO HS PRN PRN Insomnia (Reported) Miscellaneous Medications Brimonidine Tartrate/Timolol (Combigan Eye Drops) 5 Ml Drops (Reported) Cholecalciferol (Vitamin D3) (Vitamin D3) 5,000 Unit Capsule 5,000 UNIT PO ( Reported) Finasteride (Finasteride) 5 Mg Tablet 5 MG PO (Reported) Latanoprost (Latanoprost) 2.5 Ml Drops (Reported) Olopatadine HCl (Olopatadine HCl) 0.1 % Drops (Reported) Followup Plan Disposition: Home Follow-up plan 1. Followup with your primary care provider, oncologist, and hide puller within coming week to further address your medications and treatment. Discharge Diet: Low fat, Low Sodium, Heart Healthy Discharge Activity: No restrictions Patient Instructions Seek immediate medical attention if any new or worsening signs or symptoms occur. Follow-up Provider: Jeff Talley MD Time spent 30 min copies to: Jeff Talley MD, [place] Dec 21, 2016 13:55
--- NOTE | 2016-12-21 14:49 | NUR ---
Discharge: VSS, tele SR, RA O2 sats 96%. R groin site stable, ambulating in room with no gait instability noted. Given discharge instructions, new prescription for sublingual nitro, and care notes r/t nitro and chest pain. Extensive discussion with pt/ re heart cath site care. Pt to call and schedule follow up appointments. IVs d/c'd intact. D/c'd home with all personal belongings, providing transport.
--- NOTE | 2016-12-21 17:53 | NUR ---
Social Work: Brief Note / Discharge EMR reviewed. Patient is a 71 year old male who is on day 1 of hospitalization for STEMI per H&P. Patient's insurance is Medicare and his PCP is Jeff Talley MD. Patient has been deemed medically stable by . MD has placed orders for patient to discharge home today. Transportation will be provided by spouse. SW was unable to complete initial assessment prior to discharge. Patient has no needs at time of discharge. Plan: Patient will discharge home today. Transportation will be provided by patient's spouse. Patient has no additional needs at this time. NIMA Prieto
== END 2016-12-21 14:45 | disposition home or self-care (01) | DRG 287 ==
LOC: EDBD 15:27 → SED 15:27 → UNDOADMOB 18:15 → MPC 18:15 → SOU 19:16 → OBSVTOIN 19:16 → CCU 19:21 → PCC 12-21
PROVIDERS: ADMIT Hospitalist; ATTEND Internal Medicine
PROC: 4A023N7 Measurement of Cardiac Sampling and Pressure, Left Heart, Percutaneous Approach (ICD-10-PCS; principal; 2016-12-20)
PROC: B2111ZZ Fluoroscopy of Multiple Coronary Arteries using Low Osmolar Contrast (ICD-10-PCS; 2016-12-20)
PROC: B2151ZZ Fluoroscopy of Left Heart using Low Osmolar Contrast (ICD-10-PCS; 2016-12-20)
DX: R07.9 Chest pain, unspecified (principal); I10 Essential (primary) hypertension; E11.9 Type 2 diabetes mellitus without complications; E78.5 Hyperlipidemia, unspecified; E66.9 Obesity, unspecified; G47.00 Insomnia, unspecified; E55.9 Vitamin D deficiency, unspecified; Z79.82 Long term (current) use of aspirin; Z90.49 Acquired absence of other specified parts of digestive tract; Z68.39 Body mass index [BMI] 39.0-39.9, adult; Z88.0 Allergy status to penicillin; Z79.84 Long term (current) use of oral hypoglycemic drugs; Z85.09 Personal history of malignant neoplasm of other digestive organs